=== PATIENT | female | born 1980 | race Caucasian/White ===

== ENCOUNTER 2016-12-09 15:48 | Emergency (ER) ==
[2016-12-09 16:10] LABS: URINE SOURCE CLEAN CATCH
[2016-12-09 16:27] LABS: BILIRUBIN URINE NEGATIVE (NEGATIVE); BLOOD URINE NEGATIVE (NEGATIVE); CLARITY CLEAR (CLEAR); COLOR YELLOW; GLUCOSE URINE NEGATIVE (NEGATIVE); LEUKOCYTES URINE TRACE (NEGATIVE); NITRITE URINE NEGATIVE (NEGATIVE); PH URINE 6.5; PROTEIN URINE NEGATIVE (NEGATIVE); SP GRAVITY URINE 1.015; UROBILINOGEN URINE NORMAL
[2016-12-09 16:32] LABS: URINE CULTURE PL NEEDED? YES; URINE EPITHELIAL CELLS >10 /HPF (<10); URINE WBC <10 /HPF (<10)
[2016-12-09 18:00] LABS: MANUAL DIFF NEEDED? NO
[2016-12-09 18:04] LABS: BASO% 0.2 % (0.0-0.8); EOS# 0.04 X1000 (0.0-0.7); EOS% 0.4 % (0.0-10.0); HEMATOCRIT 37.9 % (37.0-47.0); HEMOGLOBIN 12.2 g/dL (12.0-16.0); IMM GRAN# 0.01 X1000 (0.0-0.04); IMM GRAN% 0.1 % (0.0-0.5); LYMPH# 2.11 X1000 (1.2-3.4); LYMPH% 22.5 % (20.5-51.1); MCH 28.4 PG (27-31); MCHC 32.2 g/dL (33-37); MCV 88.1 FL (81-99); MONO# 0.72 X1000 (0.11-0.59); MONO% 7.7 % (1.7-9.3); MPV 9.5 FL (7.4-10.4); NEUT% 69.1 % (42.2-75.2); PLT 288 X1000 (130-400)
[2016-12-09 18:50] LABS: AGAP 12; ALBUMIN 4.1 g/dL (3.5-5.0); ALKALINE PHOSPHATASE 95 U/L (32-104); AMYLASE 32 U/L (20-200); BUN 16 mg/dL (8-22); CALCIUM 9.2 mg/dL (8.8-10.2); CHLORIDE 101 mmol/L (98-107); COSMO 273; GOT 16 U/L (10-30); GPT 14 U/L (10-36); LIPASE 26 U/L (13-60); POTASSIUM 3.4 mmol/L (3.5-5.1); SODIUM 135 mmol/L (136-145); TCO2 22 mmol/L (25-35); TOTAL PROTEIN 7.4 g/dL (6.3-8.3)
--- NOTE | 2016-12-09 19:03 | PROVIDER DOCUMENTATION ---
HPI-General Adult - General Source: patient - History of Present Illness -Gen Adult Nature of Presenting Problems: 36 y/o W/F presents to the ED with multiple complaints. 1. 2 months of legs swelling. Seen PCP 2 times and no results. Pt says the swelling was bad and the skin cracked on the left leg. 2. Fever, cough, congestion, body aches X 1 month. Pt states she has been on 2 rounds of antibiotics. 3. Abdominal swelling over the weekend. Denies N/V/D. Location of Pain/Injury: reports: abdomen, lower extremity, generalized (body aches) Quality of Pain: reports: aching Severity: reports: moderate Onset/Duration: reports: other Timing: reports: still present Associated Symptoms: reports: cough, fever/chills, muscle aches, sinus congestion/drainage. denies: anxiety, chest pain, diarrhea, dizziness, genitourinary problems, joint pain, loss of appetite, nausea, shortness of breath, sensory/motor loss, swelling/mass in abdomen, syncope, vomiting, trouble walking Similar Symptoms Previously?: No Recently seen or treated by another doctor?: Yes <Sushant Hilton - Last Filed: 12/09/16 20:01> <Henry Castaneda - Last Filed: 12/09/16 20:52> - General Chief Complaint: Abdominal Pain Stated Complaint: ABD PAIN/EDEMA/LUMPS Time Seen by Provider: 12/09/16 18:40 Allergies/Adverse Reactions: Patient Allergies Allergy/AdvReac Type Severity Reaction Status Date / Time No Known Allergies Allergy Verified 07/21/16 10:46 Home Medications: Home Medication List Medication Instructions Recorded Confirmed Last Taken Type B12/Levomefolate Calcium/B-6 1 tab PO DAILY 07/21/16 07/21/16 Unknown History [Foltx Tablet] Cyclobenzaprine [Flexeril] 10 mg PO Q6H PRN PRN #20 tablet 07/21/16 Unknown Rx Furosemide [Lasix] 20 mg PO DAILY 07/21/16 07/21/16 Unknown History Iron,Carbonyl [Iron] 45 mg PO DAILY 07/21/16 07/21/16 Unknown History Omeprazole 10 mg PO DAILY 07/21/16 07/21/16 Unknown History Potassium Gluconate [Potassium] 99 mg PO DAILY 07/21/16 07/21/16 Unknown History Prednisone 40 mg PO DAILY #10 tablet 07/21/16 Unknown Rx Sertraline [Zoloft] 25 mg PO BID 07/21/16 07/21/16 Unknown History Sumatriptan [Imitrex] 07/21/16 Unknown History Trazodone [Desyrel] 50 mg PO HS 07/21/16 07/21/16 Unknown History Zonisamide 25 mg PO HS 07/21/16 07/21/16 Unknown History Albuterol Sulfate [Proair 90 mcg IH 4XDAY PRN PRN #1 12/09/16 Unknown Rx Respiclick] aer.pow.[email or web address] Guaifenesin/Codeine [Robitussin-AC] 5 ml PO Q4H PRN PRN #8 udc 12/09/16 Unknown Rx Review of Systems - Adult - REVIEW OF SYSTEMS - ADULT Constitutional: reports: chills, fever Eyes: reports: no symptoms reported Ears, Nose, Mouth & Throat: reports: sinus problem. denies: ear pain, hearing loss, mouth/dental pain, mouth swelling, throat pain Cardiovascular: denies: chest pain, edema, palpitations, poor circulation, syncope Respiratory: reports: cough. denies: shortness of breath, wheezing Gastrointestinal: reports: abdominal pain. denies: constipation, diarrhea, nausea, vomiting Genitourinary: denies: dysuria, discharge, frequent UTI's, urinary retention, urgency Musculoskeletal: denies: bone pain, back pain, joint pain, neck pain Integumentary: reports: no symptoms reported Neurological: reports: no symptoms reported Psychiatric: reports: no symptoms reported Endocrine: reports: no symptoms reported Hematologic/Lymphatic: reports: no symptoms reported Allergic/Immunologic: reports: no symptoms reported All Other Systems: Reviewed and Negative <Sushant Hilton - Last Filed: 12/09/16 20:01> Past History - Adult - PAST MEDICAL HISTORY-ADULT Review of Records: reports: Old Records Reviewed, Nursing Assessment Review, Medications Reviewed Major Childhood Illnesses: reports: denies history Cardiovascular: reports: denies history Respiratory: reports: denies history Gastrointestinal: reports: denies history Obstetrical/Gynecological: reports: denies history Genitourinary: reports: denies history Musculoskeletal: reports: denies history Neurological: reports: headaches/migraines Endocrine/Immune: reports: denies history Other Conditions: reports: denies history - PRIOR SURGERIES/PROCEDURES Surgical/Procedure History: reports: gastric bypass (2009) - SOCIAL HISTORY Smoking: cigarettes, less than 1 pack/day Substance Use: alcohol Alcohol Use Frequency: occasionally Living Situation: family <LidaSushant - Last Filed: 12/09/16 20:01> Physical Exam-General - PHYSICAL EXAM-ADULT Initial Vital Signs Reviewed: Yes - CONSTITUTIONAL General Appearance: appears well, alert, no apparent distress - EYES Eyes: PERRL/EOMI, pink conjunctivae - HEAD, EARS, NOSE, MOUTH & THROAT HENMT: moist mucous membranes, normal ENT inspection, TMs normal, pharynx normal - NECK Neck: non-tender, full range of motion, supple - RESPIRATORY Respiratory: lungs clear, normal breath sounds, no pleuratic chest pain, no respiratory distress, no accessory muscle use - CARDIOVASCULAR Cardiovascular: normal peripheral pulses, tachycardia - GASTROINTESTINAL (ABDOMEN) Abdominal Exam: normal bowel sounds, soft, tenderness (generalized) - MUSCULOSKELETAL Back Exam: normal inspection, no CVA tenderness, no vertebral tenderness Extremity: normal range of motion, normal gait, pedal edema (1+), other ( superficial veracosity Right greater toenail discoloration) Peripheral Pulses: dorsalis-pedis (R): 2+, dorsalis-pedis (L): 2+ - SKIN Integumentary: normal color, normal turgor, warm/dry - NEUROLOGIC Neurologic: grossly normal, no motor/sensory deficits - PSYCHIATRIC Psych/Mental Status: normal mood/affect, normal thought content, normal thought process, oriented x 3 <Sushant Hilton - Last Filed: 12/09/16 20:01> Progress - PLAN OF CARE/RESULTS Progress/Plan/Lab Results: Orders Category Date Time Status NPO Diet 12/09/16 15:55 Active ABDOMEN FLAT/UPRIGHT [RAD] Stat Exams 12/09/16 19:00 Ordered CHEST-2 VIEWS [RAD] Stat Exams 12/09/16 19:00 Ordered AMYLASE [CHEM] Stat Lab 12/09/16 17:30 Completed BNP [PRO B-NATRIURETIC PEPTIDE] Stat Lab 12/09/16 17:30 Completed CBC WITH ELECTRONIC DIFF [HEME] Stat Lab 12/09/16 17:30 Completed COMPREHENSIVE METABOLIC PANEL [CHEM] Stat Lab 12/09/16 17:30 Completed LIPASE [CHEM] Stat Lab 12/09/16 17:30 Completed OCCULT BLOOD SCREEN STOOL PL Stat Lab 12/09/16 19:[address] [COAG] Stat Lab 12/09/16 18:[address] W/POSS RFLX CULT [URINALYSIS] Stat Lab 12/09/16 16:00 Completed URINE CULTURE [RM] Routine Lab 12/09/16 16:32 Ordered Vital Signs Temp Pulse Resp BP Pulse Ox 12/09/16 19:33 97.8 F 97 H 16 133/88 98 12/09/16 15:50 98.5 F 114 H 20 158/88 98 No Known Allergies Allergy (Verified 07/21/16 10:46) B12/Levomefolate Calcium/B-6 [Foltx Tablet] 1 tab PO DAILY 07/21/16 Cyclobenzaprine [Flexeril] 10 mg PO Q6H PRN PRN #20 tablet 07/21/16 Furosemide [Lasix] 20 mg PO DAILY 07/21/16 Iron,Carbonyl [Iron] 45 mg PO DAILY 07/21/16 Omeprazole 10 mg PO DAILY 07/21/16 Potassium Gluconate [Potassium] 99 mg PO DAILY 07/21/16 Prednisone 40 mg PO DAILY #10 tablet 07/21/16 Sertraline [Zoloft] 25 mg PO BID 07/21/16 Sumatriptan [Imitrex] 07/21/16 Trazodone [Desyrel] 50 mg PO HS 07/21/16 Zonisamide 25 mg PO HS 07/21/16 Dietary Diet NPO Start WedDec 09 1555 Laboratory 12/09/16 12/09/16 12/09/16 19:00 18:00 17:30 WBC 9.39 RBC 4.30 Hgb 12.2 Hct 37.9 MCV 88.1 MCH 28.4 MCHC 32.2 L RDW Std Deviation 14.2 Plt Count 288 MPV 9.5 Immature Gran % (Auto) 0.1 Neut % (Auto) 69.1 Lymph % (Auto) 22.5 [place] % (Auto) 7.7 Eos % (Auto) 0.4 Baso % (Auto) 0.2 Immature Gran # (Auto) 0.01 Neut # (Auto) 6.49 Lymph # (Auto) 2.11 [place] # (Auto) 0.72 H Eos # (Auto) 0.04 Baso # (Auto) 0.02 APTT (Factor Assay) 30.0 Sodium Potassium Chloride Carbon Dioxide Anion Gap BUN Creatinine Estimated GFR/1.73 m2 BUN/Creatinine Ratio Glucose Calculated Osmolality Calcium Total Bilirubin AST ALT Alkaline Phosphatase [id number] Pept Total Protein Albumin Globulin Albumin/Globulin Ratio Amylase Lipase Urine Source Urine Color Urine Clarity Urine pH Ur Specific [place] Urine Protein Urine Ketones Urine Blood Urine Nitrite Urine Bilirubin Urine Urobilinogen Urine Microscopic RBC Urine WBC Urine Microscopic WBC Ur Epithelial Cells Urine Bacteria Urine Glucose Stool Occult Blood NEGATIVE 12/09/16 12/09/16 12/09/16 17:30 17:30 16:00 WBC RBC Hgb Hct MCV MCH MCHC RDW Std Deviation Plt Count MPV Immature Gran % (Auto) Neut % (Auto) Lymph % (Auto) [place] % (Auto) Eos % (Auto) Baso % (Auto) Immature Gran # (Auto) Neut # (Auto) Lymph # (Auto) [place] # (Auto) Eos # (Auto) Baso # (Auto) APTT (Factor Assay) Sodium 135 L Potassium 3.4 L Chloride 101 Carbon Dioxide 22 L Anion Gap 12 BUN 16 Creatinine 0.9 Estimated GFR/1.73 m2 > 60 BUN/Creatinine Ratio 18 Glucose 127 H Calculated Osmolality 273 Calcium 9.2 Total Bilirubin 0.20 AST 16 ALT 14 Alkaline Phosphatase 95 Lzo-[id number]-Ddgiolsbisx Pept 13 Total Protein 7.4 Albumin 4.1 Globulin 3.0 Albumin/Globulin Ratio 1.0 Amylase 32 Lipase 26 Urine Source CLEAN CATCH Urine Color YELLOW Urine Clarity CLEAR Urine pH 6.5 Ur Specific [place] 1.015 Urine Protein NEGATIVE Urine Ketones NEGATIVE Urine Blood NEGATIVE Urine Nitrite NEGATIVE Urine Bilirubin NEGATIVE Urine Urobilinogen NORMAL Urine Microscopic RBC Not Reportable Urine WBC TRACE A Urine Microscopic WBC <10 Ur Epithelial Cells >10 A Urine Bacteria 1+ Urine Glucose NEGATIVE Stool Occult Blood <Sushant Hilton - Last Filed: 12/09/16 20:01> Departure <Sushant Hilton - Last Filed: 12/09/16 20:01> - Departure Time of Disposition Order: 20:48 Certified Medical Emergency: Emergent <Henry Castaneda - Last Filed: 12/09/16 20:52> - Departure DIAGNOSIS: Dyspepsia Asthmatic bronchitis Qualifiers: Asthma severity: unspecified severity Asthma complication type: uncomplicated Qualified Code(s): J45.909 - Unspecified asthma, uncomplicated Disposition: HOME 01 Condition: Stable Additional Instructions: ED Follow Up Instructions: You have been treated by a care provider in the Emergency Department. These instructions are being provided to you so you can have an understanding of how to care for yourself upon discharge. Upon discharge from the Emergency Department, you are responsible for making arrangements for follow-up care by a physician of your choice. Take all prescribed medications as directed. Return to the Emergency Department immediately for any new or worsening symptoms. You may call the Physician Referral phone number at [phone] to obtain a list of Physicians who are taking new patients. Prescriptions: Albuterol Sulfate [Proair Respiclick] 90 mcg IH 4XDAY PRN PRN #1 aer.[email or web address] PRN Reason: COUGH WHEEZE Guaifenesin/Codeine [Robitussin-AC] 5 ml PO Q4H PRN PRN #8 udc PRN Reason: Cough Referrals: Jluis Verma [Primary Care Provider] - Attestation - Scribe Verification/Attestation Scribe:: Sushant Hilton Acting as Scribe for:: Henry Castaneda Scribe documention review:: This chart was documented by a scribe and accurately reflects the service the provider performed and the decisions made by the provider. <Sushant Hilton - Last Filed: 12/09/16 20:01> Physician Attestation
[2016-12-09 19:15] LABS: OCCULT BLOOD 1 NEGATIVE (NEGATIVE)
[2016-12-09 21:01] VITALS: BP 118/075
--- NOTE | 2016-12-10 06:28 | Diag Imaging Result Document ---
PROCEDURE NAME: CHEST-2 VIEWS - 12/09/2016 FRONTAL AND LATERAL CHEST, 2 VIEWS: COMPARISON: 03/26/2012. FINDINGS: The lungs are well expanded. The heart is not enlarged. The vessels are not distended. There are no infiltrates. No pleural effusions. No free air beneath the diaphragm. Mild scoliosis. IMPRESSION: No pneumonia. No acute abnormality.
--- NOTE | 2016-12-10 06:39 | Diag Imaging Result Document ---
PROCEDURE NAME: ABDOMEN FLAT/UPRIGHT - 12/09/2016 FLAT AND UPRIGHT ABDOMEN, 2 VIEWS: FINDINGS: No free air beneath the diaphragm. There are multiple surgical clips in the upper left abdomen. There are also several surgical clips in the right abdomen consistent with a cholecystectomy. Stool is found throughout the colon. The bowel loops are not dilated. No organomegaly. Mild to moderate scoliosis. There are multiple pelvic calcifications believed to be phleboliths. There are sutures overlying the rectum as well. IMPRESSION: Constipation.
== END 2016-12-09 21:03 | disposition home or self-care (01) ==
LOC: P.ED 15:48
DX: R10.13 Epigastric pain (principal); J45.909 Unspecified asthma, uncomplicated; R50.9 Fever, unspecified; R05 Cough; R09.81 Nasal congestion; M79.1 Myalgia; R19.00 Intra-abdominal and pelvic swelling, mass and lump, unspecified site; R60.0 Localized edema; R10.9 Unspecified abdominal pain; R00.0 Tachycardia, unspecified; R10.817 Generalized abdominal tenderness; Z79.899 Other long term (current) drug therapy; Z98.84 Bariatric surgery status
CPT/HCPCS: 71020; 74020; 80053; 81001; 82150; 82270; 83690; 83880; 85025; 85730; 87088; 99283